=== PATIENT | female | born 1995 | race Caucasian/White ===

== ENCOUNTER 2017-05-03 19:51 | Emergency (ER) | payer BC ==
[2017-05-03] MEDS ORDERED: IBUPROFEN 600 MG TAB PO ONE (21:23)
--- NOTE | 2017-05-03 22:06 | EDPHY ---
H & P Stated Complaint: L WRIST INJ/FALLING FENCE Time Seen by Provider: 05/03/17 20:15 HPI/ROS: Chief complaint: Left wrist injury History of present illness: This is a 21-year-old female who presents to the emergency department for a left wrist injury. She was jumping over a fence when she fell onto the wrist. Since then she has had mild pain. Worse with movement. No report of open wounds. No abnormal coolness or paresthesias in the hand. No other trauma reported. - Personal History LMP (Females 10-55): 1-7 Days Ago Current Tetanus Diphtheria and Acellular Pertussis (TDAP): Yes - Medical/Surgical History Hx Asthma: No Hx Chronic Respiratory Disease: No Hx Diabetes: No Hx Cardiac Disease: No Hx Renal Disease: No Hx Cirrhosis: No Hx Alcoholism: No Hx HIV/AIDS: No Hx Splenectomy or Spleen Trauma: No Other PMH: TONSILECTOMY, ADHD, BIPOLAR - Social History Smoking Status: Never smoked - Physical Exam Exam: General: Alert, nontoxic. Skin: No open wounds to the right upper extremity Musculoskeletal: Tenderness to the lateral aspect of the left wrist. Discomfort moving it. The rest of the wrist, hand, forearm and elbow are nontender. Moving the digits and elbow well. Vascular: Radial pulses 2+. Capillary refill brisk in the right hand. Neurologic: Sensation intact throughout the right hand and arm. Constitutional: Initial Vital Signs Temperature (C) 36.8 C 05/03/17 19:56 Heart Rate 100 05/03/17 19:56 Respiratory Rate 16 05/03/17 19:56 Blood Pressure 116/81 H 05/03/17 19:56 O2 Sat (%) 95 05/03/17 19:56 O2 Delivery Mode Room Air Allergies/Adverse Reactions: latex Allergy (Verified 05/03/17 19:55) Home Medications: Medication Instructions Recorded Adderall 10 MG (*) 05/03/17 [place]tal 05/03/17 [place] 05/03/17 Medical Decision Making - Diagnostics Imaging Results: Imaging Impressions Wrist X-Ray 05/03/17 21:20 Impression: Subtle nondisplaced transverse fracture distal radial metaphysis. Imaging: I viewed and interpreted images myself Procedures: Procedure: Splint placement. A sugar-tong splint was applied. After application of the splint I returned and re-examined the patient. The splint was adequately immobilizing the joint and distal to the splint the patient's circulation and sensation was intact. ED Course/Re-evaluation: Patient seen under the supervision of my secondary supervising physician Dr. Mat Hilliard. Patient presents for a right wrist injury. X-ray confirms a fracture. She is neurovascularly intact both before and after splinting. She will be discharged home. Home care is discussed. She is referred to Orthopedics for recheck. Return precautions are given. Patient voiced understanding and agreement plan. Differential Diagnosis: Included but not limited to contusion, sprain or strain, bony fracture - Data Points Medications Given: Discontinued Medications Ibuprofen (Motrin) 600 mg PO EDNOW ONE Stop: 05/03/17 21:24 Last Admin: 05/03/17 22:07 Dose: 600 mg Departure - Departure Disposition: Home, Routine, Self-Care Clinical Impression: Wrist fracture, left Qualifiers: Encounter type: initial encounter Fracture type: closed Qualified Code(s): S62.102A - Fracture of unspecified carpal bone, left wrist, initial encounter for closed fracture Condition: Good Instructions: Wrist Fracture in Adults (ED) Additional Instructions: Follow-up with an orthopedic doctor for continued evaluation and care Use ibuprofen 600 mg 3 times a day for the next 2-3 days for symptom control If symptoms worsen or new symptoms develop return to the emergency room for recheck Referrals: Patient,NotPresent [Primary Care Provider] - As per Instructions Adria Borja MD [Medical Doctor] - As per Instructions
[2017-05-03 22:31] VITALS: BP 121/82; PULSE 97; RESP 14; TEMP 98.1; O2SAT 98
== END 2017-05-03 22:30 | disposition home or self-care (01) ==
DX: S62.102A Fracture of unspecified carpal bone, left wrist, initial encounter for closed fracture (principal); Z91.040 Latex allergy status; W18.39XA Other fall on same level, initial encounter; Y99.8 Other external cause status; Y93.39 Activity, other involving climbing, rappelling and jumping off
CPT/HCPCS: A4565